=== PATIENT | female | born 1965 | race Caucasian/White ===

== ENCOUNTER 2017-04-01 07:30 | Inpatient (IN) ==
[2017-04-01] MEDS ORDERED: Ipratropium/Albuterol Neb 3 ML ONE (07:32)
[2017-04-01] MEDS ORDERED: methylPREDNISolone 125 MG/2 ML VIAL IVP ONE (07:33)
[2017-04-01] MEDS ORDERED: Ipratropium/Albuterol Neb 3 ML IH ONE (07:33)
--- NOTE | 2017-04-01 07:36 | Emergency Department Note ---
Disposition Clinical Impression: Acute exacerbation of chronic obstructive airways disease Disposition: Admitted As Inpatient Condition: Fair Referrals: Manoj Chung DO [Primary Care Provider] - Forms: ED Satisfaction Letter Time of Disposition: 08:47 SOB HPI - General Chief Complaint: ED Shortness of Breath/Dyspnea Stated Complaint: MARIA ELENA Time Seen by Provider: 04/01/17 07:32 Source: patient, EMS Mode of arrival: EMS Limitations: no limitations Nursing Notes Reviewed: Yes Vital Signs Reviewed: Yes - History of Present Illness 52-year-old female who comes in with a history COPD short of breath. Squad states that she was in no significant distress at home with a low pulse ox tripoding couldn't speak. She is given breathing treatments with some improvement. Continues to have significant shortness of breath on arrival. She is able to speak however. Pt Subjective Complaint: shortness of breath Onset (ago): Just [employer] Context: recent illness Severity: severe Consistency/Duration: constant Improves with: bronchodilators Worsens with: exertion Known history of: COPD Associated symptoms: Reports: cough, wheezing Treatment prior to arrival: oxygen, bronchodilator Cough Description: Involuntary Cough Frequency: Intermittent - Related Data Home Medications Medication Instructions Recorded Confirmed Mirtazapine [Remeron] 30 mg PO HS 07/21/15 10/11/16 Albuterol Sulfate [Proair Hfa] 1 puff IH Q4H PRN 03/08/16 10/11/16 Budesonide/Formoterol 160/4.5 1 puff IH BIDR 03/08/16 10/11/16 [Symbicort 160/4.5] Omeprazole [PriLOSEC] 40 mg PO DAILY 03/08/16 10/11/16 Oxygen 2 l IH HS 03/08/16 10/11/16 Tiotropium [Spiriva] 1 puff IH DAILY 03/08/16 10/11/16 Tolterodine Tartrate [Detrol] 2 mg PO DAILY 03/08/16 10/11/16 Albuterol Neb [Proventil Neb] 2.5 mg IH TID 10/11/16 10/11/16 BuPROPion XL (24 HR) [Wellbutrin 150 mg PO DAILY 10/11/16 10/11/16 Xl] Methocarbamol [Robaxin] 500 mg PO QID 10/11/16 10/11/16 Previous Rx's Medication Instructions Recorded Ibuprofen [Motrin] 800 mg PO Q6-8H PRN #30 tablet 07/21/15 predniSONE [PredniSONE] 10 mg PO DAILY 20 Days 10/15/16 Allergies Allergy/AdvReac Type Severity Reaction Status Date / Time nalbuphine Allergy Severe Hives Verified 10/11/16 18:41 celecoxib [From Celebrex] Allergy Hives Verified 10/11/16 18:41 venom-honey bee AdvReac Severe Hives Verified 10/11/16 18:41 [bee venom (honey bee)] All systems ED: reviewed and negative except as stated. Constitutional: Denies: fever, chills, weakness, weight change Eyes: Denies: eye pain, eye discharge, vision change ENT ED: Denies: ear pain, throat pain, dental pain, hearing loss, epistaxis, congestion, dysphagia Cardiovascular: Denies: chest pain, palpitations, dyspnea on exertion, edema, syncope Respiratory: Reports: cough, dyspnea, wheezes. Denies: hemoptysis, stridor Gastrointestinal: Denies: abdominal pain, nausea, vomiting, diarrhea, constipation, hematemesis, melena, hematochezia Genitourinary: Denies: dysuria, frequency, hematuria, discharge Musculoskeletal: Denies: back pain, neck pain, arthralgia, myalgia Integumentary: Denies: rash, abrasion, lesions Neurological: Denies: headache, weakness, numbness, paresthesias, confusion, abnormal gait, vertigo Psychiatric: Denies: anxiety, depression, suicidal thoughts, homicidal thoughts , auditory hallucinations, visual hallucinations Endocrine: Denies: fatigue Hematological/Lymphatic: Denies: easy bleeding, easy bruising Allergic/Immunologic: Denies: facial swelling, urticaria Past Medical History - Past Medical History Medical history: Reports: COPD Surgical history: Reports: other (spinal fusion) Psychiatric history: Reports: anxiety, depression - Social History Smoking Status: Never smoker Smokeless Tobacco Status: No Alcohol use: Reports: none Drug use: Reports: none Physical Exam - General Limitations: no limitations General appearance: in distress - Head Head exam: atraumatic, normocephalic, normal inspection - Eye Eye exam: Present: normal appearance, PERRL, EOMI - ENT ENT exam: normal exam, normal oropharynx, mucous membranes moist - Neck Neck exam: Present: normal inspection, full ROM, trachea midline - Chest Chest inspection: Present: normal inspection, symmetric chest wall rise - Respiratory Respiratory exam: Present: wheezes, accessory muscle use, prolonged expiratory phase - Cardiovascular Cardiovascular exam: Present: regular rate, normal rhythm, normal heart sounds - Abdominal Exam Abdominal exam: Present: soft, Non-Tender. Absent: tenderness, distention, guarding, rebound, rigidity - Extremities Exam Extremities exam: Present: normal inspection, full ROM. Absent: tenderness, pedal edema - Expanded Lower Extremity Exam Neurovascular/Tendon exam: Absent: motor deficit, sensory deficit, tendon deficit Gait: observed and normal - Back Exam Back exam: Present: normal inspection, full ROM. Absent: tenderness - Neurological Exam Neurological exam: Present: alert, oriented X3 - Psychiatric Psychiatric exam: Present: normal affect, normal mood - Skin Skin exam: Present: warm, dry, intact, normal color Course - Reevaluation(s) Reevaluation #1: 52-year-old female comes in with increasing shortness of breath low pulse ox. Patient has a history COPD. Patient's initial pulse ox was in the 80s and squat indicated the patient was pretty bad distress. She has improved with treatment however she continues to have shortness of breath especially with exertion. She will be admitted for further evaluation and treatment. Time: 08:47 - Consultations Consultation #1: Discussed with , admit Time: 08:48 Vital Signs Temperature 98.7 F 04/01/17 07:31 Pulse Rate 79 04/01/17 07:31 Respiratory Rate 26 04/01/17 07:31 Blood Pressure 164/98 04/01/17 07:31 O2 Sat by Pulse Oximetry 92 04/01/17 07:31 Temperature 98.7 F 04/01/17 07:31 Pulse Rate 96 04/01/17 08:13 Respiratory Rate 20 04/01/17 08:13 Blood Pressure 134/82 04/01/17 08:13 O2 Sat by Pulse Oximetry 100 04/01/17 08:13 Oxygen Delivery Oxygen Delivery Nasal Cannula Shortness of Breath/Dyspnea - Lab Data Lab results reviewed: Yes I reviewed the patient's lab results. Result diagrams: 04/01/17 08:03 04/01/17 08:03 Lab Results 04/01/17 04/01/17 04/01/17 Range/Units 07:58 08:03 08:03 WBC 12.5 H (4.3-11.1) K/mcL RBC 4.16 (3.82-4.97) M/mcL Hgb 13.1 (11.5-15.4) g/dL Hct 41.3 (35.3-44.9) % MCV 99.3 (83.0-100.0) fL MCH 31.5 (28.0-33.3) pg MCHC 31.7 (31.6-35.5) g/dL RDW 12.8 (11.5-14.5) % Plt Count 317 (140-400) K/mcL MPV 9.6 (9.4-12.4) fL Immature Gran % 0.2 (0-4) % Seg Neutrophils % 69.0 % Lymphocytes % 13.7 % Monocytes % 11.1 % Eosinophils % 5.4 % Basophils % 0.6 % Neutrophils # 8.6 (1.6-8.9) K/mcL Lymphocytes # 1.7 (0.6-4.6) K/mcL Monocytes # 1.4 H (0.0-1.3) K/mcL Eosinophils # 0.7 H (0.0-0.6) K/mcL Basophils # 0.1 (0.0-0.2) K/mcL ABG pH 7.37 (7.32-7.45) pH Units ABG pCO2 77 H* (35-45) mmHg ABG pO2 58 L (85-104) mmHg ABG HCO3 44.5 H (21-27) mEQ/L ABG Total CO2 46.9 H (20-26) mEq/L ABG O2 Saturation 89 L (95-98) % ABG Base Excess 15.4 H (-2.0 to 3.0) mEq/L Liter Flow 3 L/MIN Blood Gas Modality NC Inspired O2 32 % Sodium 143 (136-145) mEq/L Potassium 4.2 (3.5-4.5) mEq/L Chloride 97 L (98-109) mEq/L Carbon Dioxide 37 H (19-29) mEq/L BUN 16 (7-20) mg/dL Creatinine 0.67 (0.57-1.11) mg/dL Est GFR ( Amer) > 60 (> 60) Est GFR (Non-Af Amer) > 60 (> 60) BUN/Creatinine Ratio 24 (6-26) Glucose 121 H (70-99) mg/dL Calculated Osmolality 298 (280-300) Lactic Acid (0.5-2.2) mmol/L Calcium 9.8 (8.6-10.8) mg/dL Troponin I (0-0.03) ng/mL B-Natriuretic Peptide (0-100) pg/mL 04/01/17 04/01/17 04/01/17 Range/Units 08:03 08:03 08:03 WBC (4.3-11.1) K/mcL RBC (3.82-4.97) M/mcL Hgb (11.5-15.4) g/dL Hct (35.3-44.9) % MCV (83.0-100.0) fL MCH (28.0-33.3) pg MCHC (31.6-35.5) g/dL RDW (11.5-14.5) % Plt Count (140-400) K/mcL MPV (9.4-12.4) fL Immature Gran % (0-4) % Seg Neutrophils % % Lymphocytes % % Monocytes % % Eosinophils % % Basophils % % Neutrophils # (1.6-8.9) K/mcL Lymphocytes # (0.6-4.6) K/mcL Monocytes # (0.0-1.3) K/mcL Eosinophils # (0.0-0.6) K/mcL Basophils # (0.0-0.2) K/mcL ABG pH (7.32-7.45) pH Units ABG pCO2 (35-45) mmHg ABG pO2 (85-104) mmHg ABG HCO3 (21-27) mEQ/L ABG Total CO2 (20-26) mEq/L ABG O2 Saturation (95-98) % ABG Base Excess (-2.0 to 3.0) mEq/L Liter Flow L/MIN Blood Gas Modality Inspired O2 % Sodium (136-145) mEq/L Potassium (3.5-4.5) mEq/L Chloride (98-109) mEq/L Carbon Dioxide (19-29) mEq/L BUN (7-20) mg/dL Creatinine (0.57-1.11) mg/dL Est GFR ( Amer) (> 60) Est GFR (Non-Af Amer) (> 60) BUN/Creatinine Ratio (6-26) Glucose (70-99) mg/dL Calculated Osmolality (280-300) Lactic Acid 0.7 (0.5-2.2) mmol/L Calcium (8.6-10.8) mg/dL Troponin I 0.01 (0-0.03) ng/mL B-Natriuretic Peptide 35 (0-100) pg/mL - Radiology Data Radiology results reviewed: Yes I reviewed the patient's radiology results. Chest X-Ray 04/01/17 07:33 IMPRESSION: No acute cardiopulmonary disease. Stable emphysematous changes. D/ / 04/01/2017 08:09:34 Greg Rogers MD / ani Interpreting Provider: Greg Rogers MD - EKG Data EKG attestation: Yes I reviewed and interpreted this EKG. EKG shows normal: Reports: sinus rhythm Rate: Reports: normal Rhythm: Reports: NSR Interpretation: Reports: no acute changes
[2017-04-01 08:16] LABS: Basophils # 0.1 K/mcL (0.0-0.2); Basophils % 0.6 %; Eosinophils # 0.7 K/mcL (0.0-0.6); Eosinophils % 5.4 %; Hematocrit 41.3 % (35.3-44.9); Hemoglobin 13.1 g/dL (11.5-15.4); Immature Granulocytes % 0.2 % (0-4); Lymphocytes # 1.7 K/mcL (0.6-4.6); Lymphocytes % 13.7 %; Mean Corpuscular HGB Conc 31.7 g/dL (31.6-35.5); Mean Corpuscular Hemoglobin 31.5 pg (28.0-33.3); Mean Corpuscular Volume 99.3 fL (83.0-100.0); Mean Platelet Volume 9.6 fL (9.4-12.4); Monocytes # 1.4 K/mcL (0.0-1.3); Monocytes % 11.1 %; Neutrophils # 8.6 K/mcL (1.6-8.9); Platelet Count 317 K/mcL (140-400); Red Blood Count 4.16 M/mcL (3.82-4.97); Red Cell Distribution Width 12.8 % (11.5-14.5)
[2017-04-01 08:30] LABS: BUN/Creatinine Ratio 24 (6-26); Blood Urea Nitrogen 16 mg/dL (7-20); Calcium 9.8 mg/dL (8.6-10.8); Carbon Dioxide 37 mEq/L (19-29); Chloride 97 mEq/L (98-109); Glucose 121 mg/dL (70-99); Osmolality,Calculated 298 (280-300); Potassium 4.2 mEq/L (3.5-4.5); Sodium 143 mEq/L (136-145); eGFR For African Americans > 60 (> 60); eGFR For Non-African Americans > 60 (> 60)
[2017-04-01 09:08] LABS: ABG Base Excess 15.4 mEq/L (-2.0 to 3.0); ABG HCO3 44.5 mEQ/L (21-27); ABG Oxygen Saturation 89 % (95-98); ABG PH 7.37 pH Units (7.32-7.45); ABG PO2 58 mmHg (85-104); ABG TCO2 46.9 mEq/L (20-26)
[2017-04-01 09:10] LABS: ABG PCO2 77 mmHg (35-45); Blood Gas FiO2 32 %; Blood Gas Liter Flow 3 L/MIN
[2017-04-01] MEDS ORDERED: Albuterol 2.5 MG/3 ML NEBULIZER IH PRN (11:03)
[2017-04-01] MEDS ORDERED: Ondansetron 4 MG/2 ML VIAL IVP PRN (11:07)
[2017-04-01] MEDS ORDERED: Naloxone 0.4 MG/ML INJ IVP PRN (11:07)
--- NOTE | 2017-04-01 11:13 | Internal Med History&Physical ---
Date of Encounter: 04/01/17 Time of Encounter: 11:10 Assessment and Plan (1) Acute bacterial bronchitis Current visit: Yes Status: Acute Patient with cough and increasing sputum production. Had completed a course of Levaquin. Plan: We will start ceftriaxone. Will obtain sputum culture and sensitivities. (2) Tobacco abuse disorder Current visit: Yes Status: Acute She states that she quit smoking a month ago. I encouraged the patient to continue to refrain from smoking. (3) Severe protein-calorie malnutrition Current visit: Yes Status: Acute Nutrition consult. We will order Ensure. (4) Acute exacerbation of chronic obstructive airways disease Current visit: Yes Status: Acute She has a severe COPD exacerbation with moderate respiratory distress, tachypnea , hypercarbia on ABG and hypoxia. Plan: We will treat her with IV Solu-Medrol, inhaled DuoNeb and IV ceftriaxone. We will use oxygen by nasal cannula to maintain saturation above 92%. (5) Acute on chronic respiratory failure with hypoxia and hypercapnia Current visit: Yes Status: Acute Inhaled bronchodilators. Oxygen by nasal cannula to maintain saturation above 92%. Internal Medicine - H&P: HPI Chief complaint: Shortness of breath Admitted From: Emergency Dept Plans for Post Hospital Care: Home History of present illness: Ms. Noble is a 52 year old female with past medical history significant for COPD , chronic hypoxic respiratory failure on home oxygen who presented to the hospital for evaluation of shortness of breath. She reports that she has had 2 recent COPD exacerbation for which initially she received treatment with prednisone and Levaquin 2 weeks ago and then again was started on a course of prednisone one week ago. Her symptoms did not improve and over the last 2 days she had increasing shortness of breath at rest, today it was severe, she could not speak or eat without being completely out of breath, reports associated cough productive of dark yellow sputum and chest and abdominal wall tenderness secondary to cough. She reports some relief from inhaled albuterol and she was given in the emergency department. Denies nausea vomiting diarrhea, dysuria, bleeding and bruising. A 10 point review of systems was performed. Positives. See history of present illness. Additionally positive for chronic back and neck pain. Otherwise negative. Family history positive for COPD the patient's brother and positive for lung cancer. Social history she is a former heavy smoker, 1-1/2-2 packs per day since age 16. She reports that she quit smoking completely 1 month ago. Denies alcohol and drug use. Past Med Surg Social Fam HX - Past Medical History Medical history: COPD Psychiatric history: anxiety, depression - Past Surgical History Surgical History: other - Social History Smoking Status: Former smoker Smokeless Tobacco Status: No Alcohol use: none Drug use: none - Family History Mother Hx Family Cardiac Disorders: No Hx Family Respiratory Disorders: No Hx Family Cancer: No Hx Family GI Disorders: No Hx Family Endocrine Disorder: No Hx Family Neuromuscular Disorders: No Hx Family Neurologic Disorders: No Hx Family HEENT Disorders: No Hx Family Autoimmune Disorders: No Father Adopted: No Family Member Ethnicity: Non- Living Status: Still Living Hx Family Cardiac Disorders: No Hx Family Respiratory Disorders: Yes Hx Family Cancer: No (Lung cancer) Hx Family GI Disorders: No Hx Family Endocrine Disorder: No Hx Family Neuromuscular Disorders: No Hx Family Neurologic Disorders: No Hx Family HEENT Disorders: No Hx Family Autoimmune Disorders: No Internal Medicine - H&P: Meds Ibuprofen [Motrin] 800 mg PO Q6-8H PRN #30 tablet 07/21/15 [Rx] Mirtazapine [Remeron] 30 mg PO HS 07/21/15 [History] Albuterol Sulfate [Proair Hfa] 1 puff IH Q4H PRN 03/08/16 [History] Budesonide/Formoterol 160/4.5 [Symbicort 160/4.5] 1 puff IH BIDR 03/08/16 [ History] Omeprazole [PriLOSEC] 40 mg PO DAILY 03/08/16 [History] Oxygen 2 l IH HS 03/08/16 [History] Tiotropium [Spiriva] 1 puff IH DAILY 03/08/16 [History] Tolterodine Tartrate [Detrol] 2 mg PO DAILY 03/08/16 [History] Albuterol Neb [Proventil Neb] 2.5 mg IH TID 10/11/16 [History] BuPROPion XL (24 HR) [Wellbutrin Xl] 150 mg PO DAILY 10/11/16 [History] Methocarbamol [Robaxin] 500 mg PO QID 10/11/16 [History] predniSONE [PredniSONE] 10 mg PO DAILY 20 Days 10/15/16 [Rx] Allergies nalbuphine Allergy (Severe, Verified 06/17/17 09:19) Hives celecoxib [From Celebrex] Allergy (Verified 04/01/17 09:19) Hives venom-honey bee [bee venom (honey bee)] Adverse Reaction (Severe, Verified 04/01 09:19) Hives All Systems PM: A 10-system review of systems was performed and is negative for pertinent findings except as documented above in the HPI. - Constitutional Vitals: Temp Pulse Resp BP Pulse Ox 98.4 F 100 24 108/72 95 04/01/17 10:32 04/01/17 10:32 04/01/17 10:32 04/01/17 10:32 04/01/17 10:32 General appearance: Present: cachectic, A&O X 3 - Eye Eye exam: Present: PERRL, conjuntiva pink, sclera anicteric Pupils: Present: PERRL - Neck Neck exam general surgery: Present: supple, trachea midline. Absent: lymphadenopathy - Respiratory Respiratory exam: Present: prolonged expiratory phase (Diminished breath sounds with no wheezes), respiratory distress (Moderate respiratory distress, pursing of the lips), tachypnea. Absent: accessory muscle use, rales, rhonchi, wheezes - Cardiovascular Cardiovascular exam: Present: RRR, +S1, +S2. Absent: diastolic murmur, gallop, rubs, systolic murmur - GI/Abdominal GI/Abdominal exam: Present: normal bowel sounds, soft, no peritoneal signs. Absent: distended, tenderness - Extremities Exam Extremities exam: Present: warm, radial pulses palpable and symetrical. Absent : calf tenderness, cyanotic, pedal edema - Neurological Exam Neurological exam: Present: CN II-XII intact, oriented X3, no focal deficits. Absent: pronater drift, facial droop, speech deficit - Skin Skin exam: Present: dry, intact Internal Med - H&P Results - Labs CBC & Chem 7: 04/01/17 08:03 04/01/17 08:03 - EKG Data -: EKG Interpreted by Myself EKG shows normal: sinus rhythm (Normal sinus rhythm [address] or T-wave changes), ST-T waves
[2017-04-01] MEDS: Ipratropium/Albuterol Neb 3 ML IH SCH ×4 (11:34→23:11)
[2017-04-01] MEDS: BuPROPion XL (24 HR) 150 MG TABLET PO SCH (15:04)
[2017-04-01] MEDS: *HR* LORazepam 0.5 MG TABLET PO SCH (15:17)
[2017-04-01] MEDS: methylPREDNISolone 125 MG/2 ML VIAL IVP SCH ×2 (17:42→23:44)
[2017-04-01] MEDS: Budesonide/Formoterol 80/4.5 MDI IH SCH (19:22)
[2017-04-01] MEDS: Mirtazapine 15 MG TABLET PO SCH (20:19)
[2017-04-02] MEDS: Ipratropium/Albuterol Neb 3 ML IH SCH ×6 (04:01→22:59)
[2017-04-02] MEDS: methylPREDNISolone 125 MG/2 ML VIAL IVP SCH ×4 (05:09→23:29)
[2017-04-02] MEDS: *HR* Enoxaparin 40 MG/0.4 ML SYRINGE SQ SCH (05:09)
[2017-04-02 05:17] LABS: Basophils % 0.1 %; Hematocrit 43.7 % (35.3-44.9); Hemoglobin 13.9 g/dL (11.5-15.4); Immature Granulocytes % 0.3 % (0-4); Lymphocytes # 0.6 K/mcL (0.6-4.6); Lymphocytes % 6.5 %; Mean Corpuscular HGB Conc 31.8 g/dL (31.6-35.5); Mean Corpuscular Hemoglobin 31.6 pg (28.0-33.3); Mean Corpuscular Volume 99.3 fL (83.0-100.0); Mean Platelet Volume 10.2 fL (9.4-12.4); Monocytes # 0.3 K/mcL (0.0-1.3); Monocytes % 3.2 %; Platelet Count 344 K/mcL (140-400); Red Cell Distribution Width 12.5 % (11.5-14.5); Segmented Neutrophils % 89.9 %
[2017-04-02 05:33] LABS: BUN/Creatinine Ratio 24 (6-26); Blood Urea Nitrogen 17 mg/dL (7-20); Calcium 9.6 mg/dL (8.6-10.8); Carbon Dioxide 36 mEq/L (19-29); Chloride 97 mEq/L (98-109); Glucose 140 mg/dL (70-99); Magnesium 2.1 mg/dL (1.6-2.6); Osmolality,Calculated 300 (280-300); Sodium 143 mEq/L (136-145); eGFR For African Americans > 60 (> 60); eGFR For Non-African Americans > 60 (> 60)
[2017-04-02 05:44] LABS: Potassium 5.3 mEq/L (3.5-4.5)
[2017-04-02] MEDS: BuPROPion XL (24 HR) 150 MG TABLET PO SCH (07:46)
[2017-04-02] MEDS: *HR* LORazepam 0.5 MG TABLET PO SCH (07:47)
[2017-04-02] MEDS: Budesonide/Formoterol 80/4.5 MDI IH SCH ×2 (07:50→19:45)
[2017-04-02] MEDS: Tolterodine LA (24 HR) 4 MG CAP.ER.24H PO SCH (07:57)
--- NOTE | 2017-04-02 11:03 | Internal Med Progress Note ---
Date of Encounter: 04/02/17 Time of Encounter: 10:56 - Assessment and plan (1) Acute exacerbation of chronic obstructive airways disease Current Visit: Yes Status: Acute Assessment and plan: Continue duonebs, steroids, antibiotics BiPAP to ease work of breathing (2) Severe protein-calorie malnutrition Current Visit: Yes Status: Chronic Assessment and plan: BMI of 14 Continue regular diet with dietary supplements (3) Acute on chronic respiratory failure with hypoxia and hypercapnia Current Visit: Yes Status: Acute Assessment and plan: COntinue O2 and BiPAP (4) Anxiety Current Visit: Yes Status: Chronic Assessment and plan: Patient takes Ativan po at home, 0.5mg daily, continue same Reassured (5) Tobacco abuse disorder Current Visit: Yes Status: Acute Assessment and plan: She states she quit (6) Hyperkalemia Current Visit: Yes Status: Acute Assessment and plan: K 5.3 Other kidney function WNL, r/o hemolysed sample Rpt K stat p.m, and correct if persistent - Subjective Interval history: 52 F Admitted and being managed for acute on chronic hypercapneic and hypoxic respiratory failure secondary to COPDE She is seen at bedside in mild respiratory distress and complaining of anxiety She has mild hyperkelamia on her chemistry this morning, other work up unremarkable, CXR is without infiltrates - Constitutional Vitals: Temp Pulse Resp BP Pulse Ox 98.3 F 96 20 128/79 99 04/02/17 07:03 04/02/17 07:03 04/02/17 07:50 04/02/17 07:03 04/02/17 07:50 General appearance: Present: cachectic, mild distress, A&O X 3 - Head Head exam: Present: atraumatic, normocephalic - Eye Eye exam: Present: PERRL, conjuntiva pink, sclera anicteric Pupils: Present: PERRL - Neck Neck exam general surgery: Present: supple, trachea midline. Absent: lymphadenopathy - Respiratory Respiratory exam: Present: CTAB. Absent: accessory muscle use, rales, rhonchi, wheezes Additional comments: Air entry is equal bilaterally without any rales or wheezing, breath sounds are distant from emphysema - Cardiovascular Cardiovascular exam: Present: RRR, +S1, +S2. Absent: diastolic murmur, gallop, rubs, systolic murmur - GI/Abdominal GI/Abdominal exam: Present: normal bowel sounds, soft, no peritoneal signs. Absent: distended, tenderness - Extremities Exam Extremities exam: Present: warm, radial pulses palpable and symetrical. Absent : calf tenderness, cyanotic, pedal edema - Neurological Exam Neurological exam: Present: alert, CN II-XII intact, oriented X3, no focal deficits. Absent: pronater drift, facial droop, speech deficit - Skin Skin exam: Present: dry, intact Internal Medicine: Result - Labs CBC & Chem 7: 04/02/17 03:46 04/02/17 03:46 Labs: Short CBC 04/02/17 Range/Units 03:46 WBC 8.9 (4.3-11.1) K/mcL Hgb 13.9 (11.5-15.4) g/dL Hct 43.7 (35.3-44.9) % Plt Count 344 (140-400) K/mcL Neutrophils # 8.0 (1.6-8.9) K/mcL BMP 04/02/17 03:46 Sodium 143 Potassium 5.3 H D Chloride 97 L Carbon Dioxide 36 H BUN 17 Creatinine 0.72 Glucose 140 H Calcium 9.6 - ABG Interpretation ABG results: ABG ABG pH 7.37 pH Units (7.32-7.45) 04/01/17 07:58 ABG pCO2 77 mmHg (35-45) H* 04/01/17 07:58 ABG pO2 58 mmHg (85-104) L 04/01/17 07:58 ABG O2 Saturation 89 % (95-98) L 04/01/17 07:58 Consult Discharge Plan - Plan Referrals: Manoj Chung DO [Primary Care Provider] -
[2017-04-02] MEDS ORDERED: *HR* LORazepam 0.5 MG TABLET PO PRN (13:19)
[2017-04-02] MEDS: Acetaminophen 325 MG TABLET PO PRN (20:30)
[2017-04-02] MEDS: Mirtazapine 15 MG TABLET PO SCH (22:13)
[2017-04-03 05:29] LABS: BUN/Creatinine Ratio 36 (6-26); Blood Urea Nitrogen 23 mg/dL (7-20); Calcium 9.3 mg/dL (8.6-10.8); Chloride 94 mEq/L (98-109); Glucose 133 mg/dL (70-99); Osmolality,Calculated 302 (280-300); Potassium 4.8 mEq/L (3.5-4.5); Sodium 143 mEq/L (136-145); eGFR For African Americans > 60 (> 60); eGFR For Non-African Americans > 60 (> 60)
[2017-04-03 05:31] LABS: Carbon Dioxide 41 mEq/L (19-29)
[2017-04-03] MEDS: *HR* Enoxaparin 40 MG/0.4 ML SYRINGE SQ SCH (06:16)
[2017-04-03] MEDS: Ipratropium/Albuterol Neb 3 ML IH SCH ×6 (07:33→23:30)
[2017-04-03] MEDS: Budesonide/Formoterol 80/4.5 MDI IH SCH ×2 (07:35→19:30)
[2017-04-03] MEDS: BuPROPion XL (24 HR) 150 MG TABLET PO SCH (07:59)
[2017-04-03] MEDS: Tolterodine LA (24 HR) 4 MG CAP.ER.24H PO SCH (07:59)
[2017-04-03] MEDS: predniSONE 20 MG TABLET PO SCH (07:59)
[2017-04-03] MEDS ORDERED: 0.9 % Sodium Chloride 500 ML IVC ONE (08:41)
[2017-04-03] MEDS: Doxycycline 100 MG CAPSULE PO SCH ×2 (08:57→20:29)
[2017-04-03] MEDS: Acetaminophen 325 MG TABLET PO PRN (11:16)
--- NOTE | 2017-04-03 11:34 | Internal Med Progress Note ---
Date of Encounter: 04/03/17 Time of Encounter: 11:34 - Assessment and plan (1) Acute exacerbation of chronic obstructive airways disease Current Visit: Yes Status: Acute Assessment and plan: Continue duonebs, steroids, antibiotics BiPAP to ease work of breathing, patient refuses despite education on the necessity of it Keep at bedside She is full code (2) Severe protein-calorie malnutrition Current Visit: Yes Status: Chronic Assessment and plan: BMI of 14 Continue regular diet with dietary supplements (3) Acute on chronic respiratory failure with hypoxia and hypercapnia Current Visit: Yes Status: Acute Assessment and plan: COntinue O2 and BiPAP (4) Anxiety Current Visit: Yes Status: Chronic Assessment and plan: Patient takes Ativan po at home, 0.5mg daily, continue same (5) Tobacco abuse disorder Current Visit: Yes Status: Chronic Assessment and plan: She states she quit (6) Hyperkalemia Current Visit: Yes Status: Acute Assessment and plan: K 5.3 Improved with kayexalate, continue to monitor (7) Metabolic alkalosis with respiratory acidosis Current Visit: Yes Status: Acute Assessment and plan: Gave 500cc bolus Patient is a chronic retainer Anticipate serum bicarb will improve with improvement in respiratory status - Subjective Interval history: 52 F Admitted and being managed for acute on chronic hypercapneic and hypoxic respiratory failure secondary to COPDE She is seen at bedside in mild respiratory distress and complaining of anxiety She has mild hyperkelamia on her chemistry this morning, improved from yesterday She was placed on BiPAP yesterday but refused to wear it Again, she refuses BiPAP this morning, she remains alert, oriented, in mild respiratory distress Chem with metabolic alkalosis - Constitutional Vitals: Temp Pulse Resp BP Pulse Ox 98.0 F 91 18 118/75 97 04/03/17 11:01 04/03/17 11:01 04/03/17 11:01 04/03/17 11:01 04/03/17 11:01 General appearance: Present: cachectic, mild distress, A&O X 3, pleasant - Head Head exam: Present: atraumatic, normocephalic - Eye Eye exam: Present: PERRL, conjuntiva pink, sclera anicteric Pupils: Present: PERRL - Neck Neck exam general surgery: Present: supple, trachea midline. Absent: lymphadenopathy - Respiratory Respiratory exam: Present: CTAB (Diminished air entry due to emphysema, no wheezing). Absent: accessory muscle use, rales, rhonchi, wheezes - Cardiovascular Cardiovascular exam: Present: distant heart sounds, RRR, +S1, +S2. Absent: diastolic murmur, gallop, rubs, systolic murmur - GI/Abdominal GI/Abdominal exam: Present: normal bowel sounds, soft, no peritoneal signs. Absent: distended, tenderness - Extremities Exam Extremities exam: Present: warm, radial pulses palpable and symetrical. Absent : calf tenderness, cyanotic, pedal edema - Neurological Exam Neurological exam: Present: alert, CN II-XII intact, oriented X3, no focal deficits. Absent: pronater drift, facial droop, speech deficit - Skin Skin exam: Present: dry, intact Internal Medicine: Result - Labs CBC & Chem 7: 04/02/17 03:46 04/03/17 04:51 Labs: BMP 04/02/17 04/03/17 16:03 04:51 Sodium 143 Potassium 5.1 H 4.8 H Chloride 94 L Carbon Dioxide 41 H* BUN 23 H Creatinine 0.64 Glucose 133 H Calcium 9.3 - ABG Interpretation ABG results: ABG ABG pH 7.37 pH Units (7.32-7.45) 04/01/17 07:58 ABG pCO2 77 mmHg (35-45) H* 04/01/17 07:58 ABG pO2 58 mmHg (85-104) L 04/01/17 07:58 ABG O2 Saturation 89 % (95-98) L 04/01/17 07:58 Consult Discharge Plan - Plan Referrals: Manoj Chung DO [Primary Care Provider] -
--- NOTE | 2017-04-03 16:35 | Electrocardiograph Report ---
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
[2017-04-03] MEDS: Mirtazapine 15 MG TABLET PO SCH (20:29)
[2017-04-03] MEDS: *HR* LORazepam 0.5 MG TABLET PO PRN (20:29)
[2017-04-04] MEDS: Ipratropium/Albuterol Neb 3 ML IH SCH ×6 (03:48→23:26)
[2017-04-04] MEDS: *HR* Enoxaparin 40 MG/0.4 ML SYRINGE SQ SCH (05:14)
[2017-04-04] MEDS: Acetaminophen 325 MG TABLET PO PRN ×2 (06:02→20:42)
[2017-04-04] MEDS: Budesonide/Formoterol 80/4.5 MDI IH SCH ×2 (07:27→20:08)
[2017-04-04 07:33] LABS: Chloride 97 mEq/L (98-109); Sodium 141 mEq/L (136-145)
[2017-04-04 08:02] LABS: BUN/Creatinine Ratio 34 (6-26); Blood Urea Nitrogen 22 mg/dL (7-20); Calcium 9.4 mg/dL (8.6-10.8); Carbon Dioxide 31 mEq/L (19-29); Glucose 65 mg/dL (70-99); Osmolality,Calculated 293 (280-300); eGFR For African Americans > 60 (> 60); eGFR For Non-African Americans > 60 (> 60)
[2017-04-04 08:10] LABS: Potassium 5.2 mEq/L (3.5-4.5)
[2017-04-04] MEDS: Doxycycline 100 MG CAPSULE PO SCH ×2 (09:17→20:42)
[2017-04-04] MEDS: predniSONE 20 MG TABLET PO SCH (09:17)
[2017-04-04] MEDS: Tolterodine LA (24 HR) 4 MG CAP.ER.24H PO SCH (09:17)
[2017-04-04] MEDS: BuPROPion XL (24 HR) 150 MG TABLET PO SCH (09:17)
--- NOTE | 2017-04-04 10:06 | Internal Med Progress Note ---
Date of Encounter: 04/04/17 Time of Encounter: 10:04 - Assessment and plan (1) Acute on chronic respiratory failure with hypoxia and hypercapnia Current Visit: Yes Status: Acute Assessment and plan: acute on chronic hypoxic hypercapneic respiratory failure 2ry to acute COPD exacerbation due to acute bacterial bronchitis doxycycline day 2 resume solumedrol IV (discontinue prednisone) Duonebs COntinue O2 and BiPAP (2) Acute exacerbation of chronic obstructive airways disease Current Visit: Yes Status: Acute Assessment and plan: Continue duonebs, steroids, antibiotics BiPAP to ease work of breathing, patient refuses despite education on the necessity of it Keep at bedside She is full code (3) Acute bacterial bronchitis Current Visit: Yes Status: Acute (4) Tobacco abuse disorder Current Visit: Yes Status: Chronic Assessment and plan: She states she quit (5) Severe protein-calorie malnutrition Current Visit: Yes Status: Chronic Assessment and plan: BMI of 14 Continue regular diet with dietary supplements (6) Anxiety Current Visit: Yes Status: Chronic Assessment and plan: Patient takes Ativan po at home, 0.5mg daily, continue same (7) Hyperkalemia Current Visit: Yes Status: Acute Assessment and plan: K 5.3 Improved with kayexalate, may give another dose - Subjective Interval history: feeling very SOB, denies any CP , no fever, no dysuria, no diarrhea, feels weak - Constitutional Vitals: Temp Pulse Resp BP Pulse Ox 98.5 F 94 16 103/69 99 04/04/17 07:44 04/04/17 07:44 04/04/17 07:44 04/04/17 07:44 04/04/17 07:44 General appearance: Present: cachectic, mild distress, A&O X 3, pleasant - Head Head exam: Present: atraumatic, normocephalic - Eye Eye exam: Present: PERRL, conjuntiva pink, sclera anicteric Pupils: Present: PERRL - Neck Neck exam general surgery: Present: supple, trachea midline. Absent: lymphadenopathy - Respiratory Respiratory exam: Present: decreased breath sounds (very diminished breath sounds), CTAB, wheezes. Absent: accessory muscle use, rales, rhonchi - Cardiovascular Cardiovascular exam: Present: RRR, +S1, +S2. Absent: diastolic murmur, gallop, rubs, systolic murmur - GI/Abdominal GI/Abdominal exam: Present: normal bowel sounds, soft, no peritoneal signs. Absent: distended, tenderness - Extremities Exam Extremities exam: Present: warm, radial pulses palpable and symetrical. Absent : calf tenderness, cyanotic, pedal edema - Neurological Exam Neurological exam: Present: CN II-XII intact, oriented X3, no focal deficits. Absent: pronater drift, facial droop, speech deficit - Skin Skin exam: Present: dry, intact Internal Medicine: Result - Labs CBC & Chem 7: 04/02/17 03:46 04/04/17 05:52 Labs: BMP 04/04/17 05:52 Sodium 141 Potassium 5.2 H Chloride 97 L Carbon Dioxide 31 H BUN 22 H Creatinine 0.65 Glucose 65 L Calcium 9.4 - ABG Interpretation ABG results: ABG ABG pH 7.37 pH Units (7.32-7.45) 04/01/17 07:58 ABG pCO2 77 mmHg (35-45) H* 04/01/17 07:58 ABG pO2 58 mmHg (85-104) L 04/01/17 07:58 ABG O2 Saturation 89 % (95-98) L 04/01/17 07:58 Consult Discharge Plan - Plan Referrals: Manoj Chung DO [Primary Care Provider] -
[2017-04-04] MEDS: MethylPREDNISolone 40 MG/ML VIAL IVP SCH ×2 (16:51→23:49)
[2017-04-04] MEDS: *HR* LORazepam 0.5 MG TABLET PO PRN (20:42)
[2017-04-04] MEDS: Mirtazapine 15 MG TABLET PO SCH (20:42)
[2017-04-05] MEDS: Ipratropium/Albuterol Neb 3 ML IH SCH ×3 (04:30→11:49)
[2017-04-05] MEDS: *HR* Enoxaparin 40 MG/0.4 ML SYRINGE SQ SCH (05:46)
[2017-04-05 07:53] LABS: BUN/Creatinine Ratio 30 (6-26); Blood Urea Nitrogen 18 mg/dL (7-20); Calcium 9.4 mg/dL (8.6-10.8); Chloride 93 mEq/L (98-109); Glucose 113 mg/dL (70-99); Osmolality,Calculated 303 (280-300); Potassium 4.6 mEq/L (3.5-4.5); Sodium 145 mEq/L (136-145); eGFR For African Americans > 60 (> 60); eGFR For Non-African Americans > 60 (> 60)
[2017-04-05 07:55] LABS: Carbon Dioxide 45 mEq/L (19-29)
[2017-04-05] MEDS: Budesonide/Formoterol 80/4.5 MDI IH SCH (08:47)
[2017-04-05] MEDS: Tolterodine LA (24 HR) 4 MG CAP.ER.24H PO SCH (08:50)
[2017-04-05] MEDS: BuPROPion XL (24 HR) 150 MG TABLET PO SCH (08:50)
[2017-04-05] MEDS: MethylPREDNISolone 40 MG/ML VIAL IVP SCH (08:50)
[2017-04-05] MEDS: Doxycycline 100 MG CAPSULE PO SCH (08:50)
[2017-04-05 11:08] VITALS: BP 112/67
--- NOTE | 2017-04-05 14:23 | Discharge Summary ---
Date of Encounter: 04/05/17 Time of Encounter: 14:19 - Discharge Diagnosis (1) Acute on chronic respiratory failure with hypoxia and hypercapnia Priority: Primary Status: Acute Comments: acute on chronic hypoxic hypercapneic respiratory failure 2ry to acute COPD exacerbation due to acute bacterial bronchitis (2) Acute exacerbation of chronic obstructive airways disease Priority: Primary Status: Acute (3) Acute bacterial bronchitis Priority: Primary Status: Acute (4) Tobacco abuse disorder Priority: Secondary Status: Chronic (5) Severe protein-calorie malnutrition Priority: Secondary Status: Chronic (6) Anxiety Priority: Secondary Status: Chronic (7) Hyperkalemia Priority: Secondary Status: Acute - Discharge Medications Prescriptions: Doxycycline 100 mg PO BID #9 capsule LORazepam [Ativan] 0.5 mg PO DAILY PRN #15 tablet PRN Reason: Anxiety predniSONE [PredniSONE] 10 mg PO DAILY 20 Days Home Medications: Ibuprofen [Motrin] 800 mg PO Q6-8H PRN #30 tablet 07/21/15 [Rx] Mirtazapine [Remeron] 30 mg PO HS 07/21/15 [History] Albuterol Sulfate [Proair Hfa] 1 puff IH Q4H PRN 03/08/16 [History] Omeprazole [PriLOSEC] 40 mg PO DAILY 03/08/16 [History] Oxygen 3 l IH CONT 03/08/16 [History] Tiotropium [Spiriva] 1 puff IH DAILY 03/08/16 [History] Albuterol Neb [Proventil Neb] 2.5 mg IH TID 10/11/16 [History] Fluticasone/Salmeterol [Advair 250-50 Diskus] 1 puff IH BID 04/01/17 [History] Tolterodine LA (24 HR) [Detrol LA] 4 mg PO DAILY 04/01/17 [History] Doxycycline 100 mg PO BID #9 capsule 04/05/17 [Rx] LORazepam [Ativan] 0.5 mg PO DAILY PRN #15 tablet 04/05/17 [Rx] predniSONE [PredniSONE] 10 mg PO DAILY 20 Days 04/05/17 [Rx] Allergies/Adverse Reactions: Allergies nalbuphine Allergy (Severe, Verified 04/01/17 09:19) Hives celecoxib [From Celebrex] Allergy (Verified 04/01/17 09:19) Hives venom-honey bee [bee venom (honey bee)] Adverse Reaction (Severe, Verified 04/01 09:19) Hives Date of admission: 04/01/17 11:07 Primary care physician: Manoj Chung DO Consults: 04/01/17 14:25 dietary consult [Consult to Nutrition] [CONS] Routine Comment: Consulting Provider: NUTRITION Reason for Dietary Consult: PO Supplementation - Patient Status Disposition: Home Health Service Condition: Fair Overall status at discharge: patient is progressing back to baseline - Discharge Instructions Follow Up With: Manoj Chung DO [Primary Care Provider] - Additional Instructions: follow with primary care physician within the next 7 days. Taper prednisone complete 9 more doses of doxycycline. Continue Oxygen - Diet and Activity Activity: increase activity as tolerated, wear oxygen at all times Diet: low fat, low cholesterol Hospital course: Ms. Noble is a 52 year old female with past medical history significant for COPD oxygen dependent, chronic hypoxic respiratory failure on home oxygen who presented to the hospital for evaluation of shortness of breath. She reported that she had 2 recent COPD exacerbations for which initially she received treatment with prednisone and Levaquin 2 weeks prior to his admission and then again was started on a course of prednisone one week ago. Her symptoms did not improve and over the last 2 days she had increasing shortness of breath at rest , she could not speak or eat without being completely out of breath, reported associated cough productive of dark yellow sputum and chest and abdominal wall tenderness secondary to cough. Social history she is a former heavy smoker, 1-1/2-2 packs per day since age 16. She reported that she quit smoking completely 1 month ago. Solu-Medrol was continued, she improved on doxycycline, was given the option to stay here another night but feels stable enough to be discharged home. Time spent discussing smoking cessation with patient: 3 to 10 minutes - Time Spent with Patient Total time spent providing and/or coordinating discharge services: Greater than 30 minutes (40 min) - Constitutional Vitals: Temp Pulse Resp BP Pulse Ox 98.4 F 95 16 112/67 98 04/05/17 11:07 04/05/17 11:07 04/05/17 11:50 04/05/17 11:07 04/05/17 11:50 General appearance: Present: cachectic, mild distress, A&O X 3, pleasant - Head Head exam: Present: atraumatic, normocephalic - Eye Eye exam: Present: PERRL, conjuntiva pink, sclera anicteric Pupils: Present: PERRL - Neck Neck exam general surgery: Present: supple, trachea midline. Absent: lymphadenopathy - Respiratory Respiratory exam: Present: decreased breath sounds (very diminished breath sounds), CTAB. Absent: accessory muscle use, rales, rhonchi, wheezes - Cardiovascular Cardiovascular exam: Present: RRR, +S1, +S2. Absent: diastolic murmur, gallop, rubs, systolic murmur - GI/Abdominal GI/Abdominal exam: Present: normal bowel sounds, soft, no peritoneal signs. Absent: distended, tenderness - Extremities Exam Extremities exam: Present: warm, radial pulses palpable and symetrical. Absent : calf tenderness, cyanotic, pedal edema - Neurological Exam Neurological exam: Present: CN II-XII intact, oriented X3, no focal deficits. Absent: pronater drift, facial droop, speech deficit - Skin Skin exam: Present: dry, intact
--- NOTE | 2017-04-05 14:32 | Physician Discharge Referral ---
Home Health/Hosp Referral Info Transfer to: Home Health Provider in Charge Post Discharge: PCP - Diagnosis (1) Acute on chronic respiratory failure with hypoxia and hypercapnia Status: Acute (2) Acute exacerbation of chronic obstructive airways disease Status: Acute (3) Acute bacterial bronchitis Status: Acute (4) Tobacco abuse disorder Status: Chronic (5) Severe protein-calorie malnutrition Status: Chronic (6) Anxiety Status: Chronic (7) Hyperkalemia Status: Acute - Respiratory Orders Oxygen / L per min ( L) Smoking Cessation: Smoking cessation has been advised. For more information, call the [place] Tobacco Quit Line at 1-525-KFSZ-NOW. - Diet/Nutrition Diet/Nutrition Orders: No Added Salt (BERNY) - Activity Activity Orders: Ambulate - Services Needed Home Care Orders: follow with primary care physician within the next 7 days. Taper prednisone complete 9 more doses of doxycycline. Continue Oxygen - Transfer Medications Prescriptions: Doxycycline 100 mg PO BID #9 capsule LORazepam [Ativan] 0.5 mg PO DAILY PRN #15 tablet PRN Reason: Anxiety predniSONE [PredniSONE] 10 mg PO DAILY 20 Days Home Medications: Ibuprofen [Motrin] 800 mg PO Q6-8H PRN #30 tablet 07/21/15 [Rx] Mirtazapine [Remeron] 30 mg PO HS 07/21/15 [History] Albuterol Sulfate [Proair Hfa] 1 puff IH Q4H PRN 03/08/16 [History] Omeprazole [PriLOSEC] 40 mg PO DAILY 03/08/16 [History] Oxygen 3 l IH CONT 03/08/16 [History] Tiotropium [Spiriva] 1 puff IH DAILY 03/08/16 [History] Albuterol Neb [Proventil Neb] 2.5 mg IH TID 10/11/16 [History] Fluticasone/Salmeterol [Advair 250-50 Diskus] 1 puff IH BID 04/01/17 [History] Tolterodine LA (24 HR) [Detrol LA] 4 mg PO DAILY 04/01/17 [History] Doxycycline 100 mg PO BID #9 capsule 04/05/17 [Rx] LORazepam [Ativan] 0.5 mg PO DAILY PRN #15 tablet 04/05/17 [Rx] predniSONE [PredniSONE] 10 mg PO DAILY 20 Days 04/05/17 [Rx] Allergies/Adverse Reactions: Allergies nalbuphine Allergy (Severe, Verified 04/01/17 09:19) Hives celecoxib [From Celebrex] Allergy (Verified 04/01/17 09:19) Hives venom-honey bee [bee venom (honey bee)] Adverse Reaction (Severe, Verified 04/01 09:19) Hives Certification: Further, I certify that my clinical findings support that this patient is homebound (i.e. absences from home require considerable and taxing effort and are for medical reasons or gnosticism services or infrequently or short duration when for other reasons) because: Homebound Reason: Patient requires assistance of a person or device to safely leave home Attestation: My signature below is to certify that this patient is under my care and that I, or nurse practitioner, or a physician's blood bank assistant working with me, has a face-to -face encounter with this patient.
== END 2017-04-05 16:00 | disposition home health service (06) | DRG 189 ==
LOC: EMEROO 07:30 → 3ANU 07:30 → SUATTDRO 11:07
PROVIDERS: ADMIT Internal Medicine; ATTEND Internal Medicine